=== PATIENT | female | born 1990 | race Caucasian/White ===

== ENCOUNTER 2018-10-31 16:36 | Emergency (ER) | payer OTHER ==
[~2018-10-31] VITALS: Ht 167.6 cm; Wt 66.2 kg
[2018-10-31 16:55] VITALS: Ht 167.6 cm; Wt 66.2 kg
[2018-10-31 21:10] VITALS: BP 131/81
== END 2018-10-31 20:00 | disposition left against medical advice (07) ==
LOC: ED 16:36
DX: N39.0 Urinary tract infection, site not specified (principal); Z98.890 Other specified postprocedural states
CPT/HCPCS: 87491; 87591

== ENCOUNTER 2018-11-11 11:10 | Emergency (ER) | payer OTHER ==
[~2018-11-11] VITALS: Ht 165.1 cm; Wt 64.4 kg
[2018-11-11 11:18] VITALS: Ht 165.1 cm; Wt 64.4 kg
[2018-11-11 13:31] VITALS: BP 119/82
== END 2018-11-11 13:30 | disposition home or self-care (01) ==
LOC: ED 11:10
DX: N39.0 Urinary tract infection, site not specified (principal); Z87.42 Personal history of other diseases of the female genital tract

== ENCOUNTER 2018-12-14 10:46 | Emergency (ER) | payer OTHER ==
[~2018-12-14] VITALS: Ht 165.1 cm; Wt 64.9 kg
[2018-12-14 10:55] VITALS: BP 123/84; Ht 165.1 cm; Wt 64.9 kg
== END 2018-12-14 12:50 | disposition home or self-care (01) ==
LOC: ED 10:46
DX: B37.3 Candidiasis of vulva and vagina (principal); N39.0 Urinary tract infection, site not specified
CPT/HCPCS: 87491; 87591

== ENCOUNTER 2019-01-11 02:05 | Emergency (ER) | payer OTHER ==
[~2019-01-11] VITALS: Ht 162.6 cm; Wt 64.0 kg
[2019-01-11 02:14] VITALS: Ht 162.6 cm; Wt 64.0 kg
[2019-01-11 02:45] LABS: BASOPHIL % 0.5 % (0-2); PLATELET COUNT 241 x10^3mcL (130-400); RED CELL DISTRIBUTION WIDTH 12.9 % (11.5-14.5)
[2019-01-11 02:51] LABS: CALCIUM 8.5 mg/dL (8.5-10.1); CARBON DIOXIDE 29.3 mmol/L (21-32); CHLORIDE SERUM 102 mmol/L (98-107); CREATININE SERUM 0.7 mg/dL (0.6-1.0); GFR1 > 60 mL/min; GLUCOSE SERUM 99 mg/dL (74-106); POTASSIUM SERUM 3.6 mmol/L (3.5-5.1); SODIUM SERUM 137 mmol/L (136-145)
[2019-01-11 02:55] LABS: ALKALINE PHOSPHATASE 72 U/L (46-116); ALT/SGPT 31 U/L (14-59); AST/SGOT 21 U/L (15-37); BILIRUBIN TOTAL 0.77 mg/dL (0.20-1.00); LIPASE 139 IU/L (73-393); TOTAL PROTEIN, SERUM 7.8 g/dL (6.4-8.2)
[2019-01-11 04:42] VITALS: BP 106/77
== END 2019-01-11 04:42 | disposition home or self-care (01) ==
LOC: ED 02:05
PROVIDERS: Emergency Medicine
DX: A08.4 Viral intestinal infection, unspecified (principal)
CPT/HCPCS: 36415; J2405; J7030

== ENCOUNTER 2019-01-13 01:08 | Emergency (ER) | payer OTHER ==
[~2019-01-13] VITALS: Ht 162.6 cm; Wt 62.6 kg
[2019-01-13 01:11] VITALS: Ht 162.6 cm; Wt 62.6 kg
[2019-01-13 01:28] VITALS: BP 114/71
== END 2019-01-13 01:28 | disposition left against medical advice (07) ==
LOC: ED 01:08
DX: Z53.21 Procedure and treatment not carried out due to patient leaving prior to being seen by health care provider (principal)